=== PATIENT | female | born 1945 | race Caucasian/White ===

== ENCOUNTER 2018-04-06 10:48 | Day surgery (SDC) | payer OTHER, BC ==
[~2018-04-06] VITALS: Ht 165.1 cm; Wt 76.3 kg
[~2018-04-06 10:48] MED LIST: ASCORBIC ACID100 MG PO; CYANOCOBALAM1000 MCG PO; DILAUDID2 MG PO; FERROUS SULFAT325 MG PO; LEVOTHYROXINE100 MCG PO; LISINOPRIL20 MG PO; LO-DOSE ASPIRIN81 M1 PO; LORAZEPAM1 MG PO; NEXIUM20 MG PO; NORCO 5/3251 TABLET PO; PAROXETINE HCL20 MG PO; PAXIL20 MG PO; PRAZOSIN HCL2 MG PO; SEROQUEL50 MG PO; SYNTHROID50 MCG PO; TYLENOL EXTRA500 MG PO; VITAMIN D31000 UNIT PO; ZOCOR40 MG PO
[2018-04-06 11:55] VITALS: BP 188/9
[2018-04-06 18:15] VITALS: BP 197/87
[2018-04-06 18:54] VITALS: BP 168/70
== END 2018-04-06 18:55 | disposition home or self-care (01) ==
LOC: SDC 10:48 → 2SOUTH 10:48 → CANRESERV 18:28 → ENRESERV 18:28 → SDC 18:55 → 2SOUTH 18:55
PROC: 0SJCXZZ Inspection of Right Knee Joint, External Approach (ICD-10-PCS; principal; 2018-04-06)
DX: M17.11 Unilateral primary osteoarthritis, right knee (principal); Z53.09 Procedure and treatment not carried out because of other contraindication; I10 Essential (primary) hypertension; F41.9 Anxiety disorder, unspecified
CPT/HCPCS: G0378; J0131; J0690; J1885; J2250; J2795; J7050